=== PATIENT | female | born 2000 | race Caucasian/White ===

== ENCOUNTER 2023-04-28 13:43 | Observation (INO) ==
[2023-04-28] MEDS ORDERED: SODIUM CHLORIDE 0.9% 1,000 ML IV ONE (14:16)
[2023-04-28] MEDS ORDERED: fentaNYL citrate PF 100 MCG/2 ML VIAL IV STA (14:17)
[2023-04-28] MEDS ORDERED: ONDANSETRON INJ 2 MG/ML 2 ML VIAL IV STA (14:17)
--- NOTE | 2023-04-28 14:31 | Emergency Department Note ---
Impression & Plan Pneumomediastinum, Chest pain, Vomiting, GERD (gastroesophageal reflux disease) ED Provider Note NAME: TRELL ROBERTS AGE: 22 SEX: F : 2000 ARRIVES VIA: Walk-In INFORMANT: Patient, ED PROVIDER(S): Jose Nieves MD CHIEF COMPLAINT: Chest pain HPI: This is a 22-year-old female presenting for persistent chest pain. Patient was here yesterday where she was diagnosed with pneumomediastinum, mild. She was discharged with pain control, Protonix. Since then she has been unable to tolerate any p.o. She states she is still nauseous and vomiting without the ability to tolerate any fluids or food. Whenever she tries to eat she does continue to vomit which made her chest pain worse. She states that her pain is actually worse than it was yesterday. She was worse when she breathes. It is a burning sensation. She has not any fevers or chills since leaving. ROS: See above HPI for pertinent positives & negatives. A total of 10 systems reviewed and were otherwise negative. PAST MEDICAL HISTORY: See Below PAST SURGICAL HISTORY: See Below FAMILY HISTORY: See Below SOCIAL HISTORY: See Below HOME MEDICATIONS: See Below ALLERGIES: See Below VITALS: See Below PHYSICAL EXAMINATION: General: Moderate distress due to pain Head: Normocephalic and atraumatic Eyes: Normal inspection, extraocular muscles intact, no conjunctival pallor Ear, nose, throat: Normal external exam Neck: Normal range of motion Respiratory: Patient is in no respiratory distress, lungs clear to auscultation bilaterally, no crepitus Cardiovascular: RRR without murmur appreciated GI: soft, nontender, no guarding or rebound Extremities: pulses intact with good cap refills, no LE pitting edema or calf tenderness Neuro: The patient awake and alert, appropriately conversive,no focal decifits Skin: Warm, dry, and intact MEDICAL DECISION MAKING: This is a 22-year-old female presenting for pneumomediastinum/persistent chest pain. Patient discharged 1 day ago with mild mediastinum given Protonix and pain control. At this time her symptoms are worsening, she is unable to tolerate any p.o. at this time due to nausea and vomiting. Pain is worsening. We will get repeat imaging, lab work to evaluate for any change in her conditio n. Patient's lab work is fairly stable without significant normality, very slight lactic acid level elevation. Otherwise patient's chest x-ray and CT imaging show stable/improving pneumomediastinum. Unfortunate due to patient's nausea vomiting and pain, patient unable to tolerate p.o., will admit her for rehydration therapy and pain control. Triage Nursing notes reviewed. Prior medical records reviewed including visit showing her previous work-up. Vital Signs: reviewed and remarkable for no significant abnormalities Differential diagnosis: Worsening pneumomediastinum, pneumonia, pneumothorax, ACS ER treatment provided: See below Diagnostics interpreted by me: ECG: EKG reviewed by me showing sinus rhythm of 70, normal intervals, no ST segment elevations consistent with STEMI Cardiac Monitoring: An order was placed for continuous cardiac monitoring. The monitor shows a rate of sinus rhythm with 73 rhythm. Laboratory studies: As stated above and show below. Imaging studies: See below. Chest x-ray reviewed by me showing no pneumothorax, focal consolidations Consultation(s): None Past Med/Surg History Medical History No chronic diseases present Polycystic ovarian syndrome Currently being treated with spironolactone Surgical History No significant past surgical history Social History Smoking Status: Never smoker Hx Alcohol Use: No Communication Ability: Effective Feels Safe at Home: Yes Allergies Allergies Allergy/AdvReac Type Severity Reaction Status Date / Time No Known Allergies Allergy Unverified 04/27/23 10:09 Home Meds Home Medications Medication Instructions Recorded Confirmed clindamycin phosphate 1 % lotion 1 applic topical BID PRN 04/27/23 04/28/23 Deeper/Redder pimples fluoxetine 40 mg capsule 40 mg PO QAM 04/27/23 04/28/23 norgestimate 0.18 mg/0.215 mg/0.25 1 tab PO QAM 04/27/23 04/28/23 mg-ethinyl estradiol 25 mcg tablet ([id number]) spironolactone 50 mg tablet 50 mg PO BID 04/27/23 04/28/23 Previous Rx's Medication Instructions Recorded pantoprazole 40 mg tablet,delayed 40 mg PO DAILY #30 tabs 04/27/23 release (Protonix) Results & Data (ED) Vital Signs Vital Signs - 24 hr 04/28/23 13:44 04/28/23 14:11 04/28/23 14:48 Temperature 36.3 C L Temperature Source Temporal Artery Scan Pulse Rate 89 87 Pulse Rate from SpO2 Sensor Respiratory Rate 18 18 Blood Pressure 132/88 Blood Pressure [Right Arm] 159/93 H Blood Pressure Mean 102 Blood Pressure Mean [Right Arm] 115 Pulse Oximetry 97 Oxygen Delivery Method Sepsis Recent Fever Within 48 Hours No Sepsis New/Unexplained Change in Mental Status N/A Sepsis Action Taken by Nursing No Action Required 04/28/23 14:06 04/28/23 14:10 04/28/23 14:20 Temperature Temperature Source Pulse Rate 68 85 66 Pulse Rate from SpO2 Sensor 69 Respiratory Rate 16 17 20 Blood Pressure Blood Pressure [Right Arm] Blood Pressure Mean Blood Pressure Mean [Right Arm] Pulse Oximetry 100 Oxygen Delivery Method Sepsis Recent Fever Within 48 Hours Sepsis New/Unexplained Change in Mental Status Sepsis Action Taken by Nursing 04/28/23 14:30 04/28/23 14:40 04/28/23 14:46 Temperature Temperature Source Pulse Rate 60 67 Pulse Rate from SpO2 Sensor Respiratory Rate 17 18 Blood Pressure 159/93 H Blood Pressure [Right Arm] Blood Pressure Mean 117 Blood Pressure Mean [Right Arm] Pulse Oximetry Oxygen Delivery Method Sepsis Recent Fever Within 48 Hours Sepsis New/Unexplained Change in Mental Status Sepsis Action Taken by Nursing 04/28/23 14:46 04/28/23 15:00 Temperature Temperature Source Pulse Rate 56 L 77 Pulse Rate from SpO2 Sensor Respiratory Rate 17 18 Blood Pressure Blood Pressure [Right Arm] Blood Pressure Mean Blood Pressure Mean [Right Arm] Pulse Oximetry 100 Oxygen Delivery Method Room Air Sepsis Recent Fever Within 48 Hours Sepsis New/Unexplained Change in Mental Status Sepsis Action Taken by Nursing Laboratory Data 04/28/23 14:13 04/28/23 14:13 Lab Results 04/28/23 04/28/23 04/28/23 Range/Units 14:13 14:13 14:46 WBC 9.39 (4.8-10.8) K/ul RBC 4.78 (4.20-5.40) M/uL Hgb 12.6 (12.0-16.0) g/dl Hct 38.6 (37.0-47.0) % MCV 80.8 (80.0-100.0) fL MCH 26.4 (25.0-34.0) pg MCHC 32.6 (32.0-36.0) g/dL RDW Std Deviation 42.8 (36.4-46.3) fL RDW Coeff of Wesley 14.6 H (11.5-14.5) % Plt Count 396 (130-400) K/uL MPV 9.7 (9.4-12.4) fL Immature Gran % (Auto) 0.3 % Neut % (Auto) 75.8 % Lymph % (Auto) 19.8 % Mingo % (Auto) 3.3 % Eos % (Auto) 0.7 % Baso % (Auto) 0.1 % Neut # (Auto) 7.11 H (1.40-6.50) K/uL Lymph # (Auto) 1.86 (1.20-3.40) K/uL Mingo # (Auto) 0.31 (0.11-0.59) K/uL Eos # (Auto) 0.07 (0.00-0.50) K/uL Baso # (Auto) 0.01 (0.00-0.20) K/uL Immature Gran # (Auto) 0.03 (0.01-0.20) K/uL Sodium 136 (136-145) mmol/L Potassium 3.8 (3.5-5.1) mmol/L Chloride 101 (98-107) mmol/L Carbon Dioxide 20 L (21-32) mmol/L Anion Gap 15 H (3-11) BUN 15 (6-23) mg/dl Creatinine 0.84 (0.6-1.2) mg/dl Est Cr Clr Drug Dosing 95.3 ml/min Est GFR ( Amer) 115.1 ml/min Est GFR (Non-Af Amer) 99.4 ml/min BUN/Creatinine Ratio 17.9 (10-20) Glucose 121 H (70-99(Fasting)) mg/dl Lactate 2.1 H* (0.4-2.0) mmol/L Calcium 10.3 (8.6-10.3) mg/dl 04/28/23 Range/Units 16:34 WBC (4.8-10.8) K/ul RBC (4.20-5.40) M/uL Hgb (12.0-16.0) g/dl Hct (37.0-47.0) % MCV (80.0-100.0) fL MCH (25.0-34.0) pg MCHC (32.0-36.0) g/dL RDW Std Deviation (36.4-46.3) fL RDW Coeff of Wesley (11.5-14.5) % Plt Count (130-400) K/uL MPV (9.4-12.4) fL Immature Gran % (Auto) % Neut % (Auto) % Lymph % (Auto) % Mingo % (Auto) % Eos % (Auto) % Baso % (Auto) % Neut # (Auto) (1.40-6.50) K/uL Lymph # (Auto) (1.20-3.40) K/uL Mingo # (Auto) (0.11-0.59) K/uL Eos # (Auto) (0.00-0.50) K/uL Baso # (Auto) (0.00-0.20) K/uL Immature Gran # (Auto) (0.01-0.20) K/uL Sodium (136-145) mmol/L Potassium (3.5-5.1) mmol/L Chloride (98-107) mmol/L Carbon Dioxide (21-32) mmol/L Anion Gap (3-11) BUN (6-23) mg/dl Creatinine (0.6-1.2) mg/dl Est Cr Clr Drug Dosing ml/min Est GFR ( Amer) ml/min Est GFR (Non-Af Amer) ml/min BUN/Creatinine Ratio (10-20) Glucose (70-99(Fasting)) mg/dl Lactate 1.6 (0.4-2.0) mmol/L Calcium (8.6-10.3) mg/dl Administered Medications Discontinued Medications Fentanyl Citrate (Fentanyl Citrate Pf 100 Mcg/2 Ml Vial) 50 mcg IV NOW STA Stop: 04/28/23 14:18 Last Admin: 04/28/23 14:26 Dose: 50 mcg Documented By: KT Hydromorphone HCl (Hydromorphone Inj 0.5 Mg/0.5 Ml Syr) 0.5 mg IV NOW STA Stop: 04/28/23 16:33 Last Admin: 04/28/23 16:39 Dose: 0.5 mg Documented By: CRYSTAL Sodium Chloride (Nss) 1,000 mls @ 999 mls/hr IV .Q1H1M ONE Stop: 04/28/23 15:16 Last Infusion: 04/28/23 15:42 Dose: 0 mls/hr Documented By: Admin: 04/28/23 14:26 Dose: 999 mls/hr Documented By: KAYA Pantoprazole Sodium 40 mg/ (Syringe) 10 mls @ 5 mls/min IV ONE ONE Stop: 04/28/23 17:31 Last Admin: 04/28/23 17:41 Dose: 5 mls/min Documented By: MELISSA Famotidine 20 mg/ Syringe 5 mls @ 2.5 mls/min IV ONE ONE Stop: 04/28/23 17:31 Last Admin: 04/28/23 17:41 Dose: 2.5 mls/min Documented By: MELISSA Acetaminophen (Ofirmev) 1,000 mg in 100 mls @ 400 mls/hr IV NOW STA Stop: 04/28/23 17:29 Last Infusion: 04/28/23 20:34 Dose: 0 mls/hr Documented By: Admin: 04/28/23 17:41 Dose: 400 mls/hr Documented By: MELISSA Ioversol (Optiray 320 100ml) 90 ml IV ONCE ONE Stop: 04/28/23 15:20 Last Admin: 04/28/23 15:20 Dose: 90 ml Documented By: GUY Metoclopramide HCl (Metoclopramide Hcl Inj 5 Mg/Ml 2 Ml Vial) 10 mg IV NOW STA Stop: 04/28/23 16:42 Last Admin: 04/28/23 16:46 Dose: 10 mg Documented By: CRYSTAL Ondansetron HCl (Ondansetron Inj 2 Mg/Ml 2 Ml Vial) 4 mg IV NOW STA Stop: 04/28/23 14:18 Last Admin: 04/28/23 14:26 Dose: 4 mg Documented By: KAYA Imaging Data Radiologist's Impression: Chest X-Ray 04/28/23 14:11 XR chest 2V PA/lateral HISTORY: 22 years-old Female pneumediastium 2 days ago follow-up study in a patient with pneumomediastinum COMPARISON: Chest CT 04/27/2023 TECHNIQUE: PA and lateral views of the chest FINDINGS: Cardiomediastinal and hilar silhouettes are within normal limits. Persistent pneumomediastinum and pneumopericardium with deep tissue air extending into the neck base. The overall degree of pneumomediastinum appears stable to mildly improved. No pneumothorax, pleural effusion or airspace consolidation. IMPRESSION: 1. Persistent pneumomediastinum, stable to mildly improved from yesterday's exam. 2. No pneumothorax. ACT 112: Negative or not required by law. The above report was generated using voice recognition software. It may contain grammatical, syntax or spelling errors. Electronically signed by: Andre Pickard M.D. 04/28/2023 3:[address] 04/28/23 15:[address] WITH CONTRAST CT DOSE: 383.98 mGy.cm HISTORY: Follow-up study in a patient with pneumomediastinum pneumomediastium TECHNIQUE: Multiaxial CT images of the chest were performed following the IV administration of 90 cc of Optiray. A dose lowering technique was utilized adhering to the principles of ALARA. COMPARISON: 04/27/2023 FINDINGS: Unremarkable thyroid. Thymic tissue in the anterior mediastinum. No lymphadenopathy. Heart is normal in size without pericardial effusion. Normal thoracic aorta. There is persistent pneumomediastinum/pneumopericardium with deep tissue air extending into the neck and paraesophageal tissues. Overall these findings appear stable to mildly improved without evidence of progression. No significant esophageal wall thickening. No pneumothorax, pleural effusion, airspace consolidation or pulmonary edema. Central airways are patent. No acute process of the imaged upper abdomen. Unremarkable soft tissues. No acute fracture. IMPRESSION: 1. Persistent pneumomediastinum, stable to slightly improved from yesterday's exam. 2. No pneumothorax. ACT 112: Negative or not required by law. Electronically signed by: Andre Pickard M.D. 04/28/2023 3:32 PM Discharge Plan Visit Data Chief Complaint: Illness Stated Complaint: CHEST PAIN,SOB,VOMITING ED Provider: Jose Nieves Discharge Problem: Pneumomediastinum, Chest pain, Vomiting, GERD (gastroesophageal reflux disease) Patient Disposition: Admitted As Inpatient Discharge Instructions Interventions: ED Discharge Assessment Last Done: 04/28/23 19:52
[2023-04-28 14:33] LABS: Basophils # (auto) 0.01 K/uL (0.00-0.20); Basophils % (auto) 0.1 %; Eosinophils # (auto) 0.07 K/uL (0.00-0.50); Eosinophils % (auto) 0.7 %; Hematocrit (blood only) 38.6 % (37.0-47.0); Hemoglobin 12.6 g/dl (12.0-16.0); Immature Granulocytes # (auto) 0.03 K/uL (0.01-0.20); Immature Granulocytes % (auto) 0.3 %; Lymphocytes # (auto) 1.86 K/uL (1.20-3.40); Lymphocytes % (auto) 19.8 %; Mean Corpuscular Hemoglobin 26.4 pg (25.0-34.0); Mean Corpuscular Hgb Conc 32.6 g/dL (32.0-36.0); Mean Corpuscular Volume 80.8 fL (80.0-100.0); Mean Platelet Volume 9.7 fL (9.4-12.4); Monocytes # (auto) 0.31 K/uL (0.11-0.59); Monocytes % (auto) 3.3 %; Neutrophils # (auto) 7.11 K/uL (1.40-6.50); Neutrophils % (auto) 75.8 %; Platelet Count 396 K/uL (130-400); RDW Coefficient of Variation 14.6 % (11.5-14.5); RDW Standard Deviation 42.8 fL (36.4-46.3); Red Blood Count 4.78 M/uL (4.20-5.40); White Blood Count 9.39 K/ul (4.8-10.8)
[2023-04-28 14:47] LABS: BUN Creatinine Ratio 17.9 (10-20); Calcium 10.3 mg/dl (8.6-10.3); Creatinine Clr Calc Pharmacy 95.3 ml/min; Est GFR (African American) 115.1 ml/min; Est GFR (Non-African American) 99.4 ml/min; Potassium 3.8 mmol/L (3.5-5.1)
[2023-04-28] MEDS ORDERED: OPTIRAY 320 100ml IV ONE (15:19)
--- NOTE | 2023-04-28 15:30 | XRay Report ---
XR chest 2V PA/lateral HISTORY: 22 years-old Female pneumediastium 2 days ago follow-up study in a patient with pneumomedia stinum COMPARISON: Chest CT 04/27/2023 TECHNIQUE: PA and lateral views of the chest FINDINGS: Cardiomediastinal and hilar silhouettes are within normal limits. Persistent pneumomediastinum and pn eumopericardium with deep tissue air extending into the neck base. The overall degree of pneumomedias tinum appears stable to mildly improved. No pneumothorax, pleural effusion or airspace consolidation. IMPRESSION: 1. Persistent pneumomediastinum, stable to mildly improved from yesterday's exam. 2. No pneumothorax. ACT 112: Negative or not required by law. The above report was generated using voice recognition software. It may contain grammatical, syntax o r spelling errors. Electronically signed by: Andre Pickard M.D. 04/28/2023 3:29 PM
--- NOTE | 2023-04-28 15:34 | CT Scan Report ---
CHEST CT WITH CONTRAST CT DOSE: 383.98 mGy.cm HISTORY: Follow-up study in a patient with pneumomediastinum pneumomediastium TECHNIQUE: Multiaxial CT images of the chest were performed following the IV administration of 90 cc of Optiray. A dose lowering technique was utilized adhering to the principles of ALARA. COMPARISON: 04/27/2023 FINDINGS: Unremarkable thyroid. Thymic tissue in the anterior mediastinum. No lymphadenopathy. Heart is normal in size without pericardial effusion. Normal thoracic aorta. There is persistent pneumomediastinum/pneumopericardium with deep tissue air extending into the neck and paraesophageal tissues. Overall these findings appear stable to mildly improved without evidence of progression. No significant esophageal wall thickening. No pneumothorax, pleural effusion, airspac e consolidation or pulmonary edema. Central airways are patent. No acute process of the imaged upper abdomen. Unremarkable soft tissues. No acute fracture. IMPRESSION: 1. Persistent pneumomediastinum, stable to slightly improved from yesterday's exam. 2. No pneumothorax. ACT 112: Negative or not required by law. Electronically signed by: Andre Pickard M.D. 04/28/2023 3:32 PM
[2023-04-28] MEDS ORDERED: HYDROmorphone INJ 0.5 MG/0.5 ML SYR IV STA (16:32)
[2023-04-28] MEDS ORDERED: METOCLOPRAMIDE HCL INJ 5 MG/ML 2 ML VIAL IV STA (16:41)
[2023-04-28] MEDS ORDERED: ACETAMINOPHEN 1,000 MG/100 ML VIAL IV STA (17:15)
--- NOTE | 2023-04-28 17:21 | History & Physical Report ---
Date of Service April 28, 2023 Assessment & Plan (1) Chest pain: Plan: Acetaminophen 1g IV then TID, convert to PO when able to take PO meds Morphine 4mg IV q4h PRN for breakthrough pain Ondansetron for nausea Suspect combination of GERD and pneumomediastinum causing this pain (2) GERD (gastroesophageal reflux disease): Plan: IV famotidine 20mg and pantoprazole 40mg now then BID Avoid NSAIDs Clear liquids, advance diet as tolerated (3) Pneumomediastinum: Plan: Improving on CT chest, suspected secondary to increased Valsalva from vomiting resulting in occult bronchoalveolar injury Repeat CXR in AM to assess for developing pneumothorax (4) Polycystic ovarian syndrome: Plan: Hold spironolactone temporarily to avoid dehydration Plan VTE Prophylaxis - low risk Diet - clear liquids, advance as tolerated Disposition - observation to med/surg Admission and Anticipated Discharge Date Admission Date: April 28, 2023 History of Present Illness Chief Complaint: Chest pain Primary Care Provider: Carline Frias MD Armin William is a 22 year old female who presents to the ER with chest pain. She notes symptoms started on Tuesday initially with nasal congestion and cough which has now improved. She noted worsening reflux and couldn't eat dinner. Sudden shortness of breath after vomiting following this which prompted her visit to the ER yesterday. She was given famotidine 20mg IV and pantoprazole 40mg PO in the ER yesterday and diagnosed with pneumomediastinum. On repeat CT with Gastrografin this was not suspected to be esophageal tear and more likely occult bronchoalveolar injury. She had pulmonology and gastroenterology consults and after stable follow up CXR she was advised to be discharged on pantoprazole for her heartburn. Today made sandwich for herself and couldn't finish it or keep it down therefore returned to the ER with worsening chest pain. No acid taste. No radiation. Sharp pain on breathing out. Better after being given famotidine and pantoprazole here. Given she has been unable to take liquids at this time and failed to manage this as outpatient, inpatient observation was recommended. She reports heartburn intermittently for the last 2 years a few times a week, anything sets it off. Takes chewable tums x1 twice a week to help with this. Nausea part of acid reflux getting worse over the last two years. Allergies Allergy/AdvReac Type Severity Reaction Status Date / Time No Known Allergies Allergy Unverified 04/27/23 10:09 Home Medications Medication Instructions Recorded Confirmed Type clindamycin phosphate 1 % lotion 1 applic topical BID PRN 04/27/23 04/28/23 History Deeper/Redder pimples fluoxetine 40 mg capsule 40 mg PO QAM 04/27/23 04/28/23 History norgestimate 0.18 mg/0.215 mg/0.25 1 tab PO QAM 04/27/23 04/28/23 History mg-ethinyl estradiol 25 mcg tablet ([id number]-[id number]) pantoprazole 40 mg tablet,delayed 40 mg PO DAILY #30 tabs 04/27/23 04/28/23 Rx release (Protonix) spironolactone 50 mg tablet 50 mg PO BID 04/27/23 04/28/23 History Past Med/Surg History Medical History No chronic diseases present Polycystic ovarian syndrome Currently being treated with spironolactone Surgical History No significant past surgical history Social History Smoking Status: Never smoker Second Hand Exposure: No; Do You Dip or Chew Tobacco: No; Tobacco Cessation Education Requested by Patient: No Hx Alcohol Use: No Hx Substance Use: No Preferred Language: Azeri Communication Ability: Effective Mattress Packer Required: No Beliefs That Will Affect Care: None Current Living Situation: Alone Other Information That Helps Us Care for You: No Feels Safe at Home: Yes Safety Concerns: Feels Safe At This Time Assistive Devices: None Review of Systems Review of Systems: All systems reviewed & are unremarkable except as noted in HPI & below Physical Exam Constitutional: WD/WN, vitals as above Eyes: + anicteric sclerae; normal pupil size Respiratory: normal respiratory effort, lungs clear to auscultation Cardiovascular: RRR, no murmur, no edema Gastrointestinal (Abdomen): normal bowel sounds, soft, nontender, no hepatosplenomegaly Musculoskeletal: no cyanosis or clubbing, extremities motor strength 5/5 Skin: no rashes, warm and dry Psychiatric: A+Ox3, euthymic affect Results & Data Results & Data Vital Signs (Past 12 Hours) Vital Signs Temp Pulse Resp BP BP Pulse Ox 04/28/23 14:46 56 L 17 04/28/23 14:46 159/93 H 04/28/23 14:40 67 18 04/28/23 14:30 60 17 04/28/23 14:20 66 20 04/28/23 14:10 85 17 04/28/23 14:06 68 16 100 04/28/23 14:48 18 159/93 H 04/28/23 14:11 87 04/28/23 13:44 36.3 C L 89 18 132/88 97 Laboratory Results Abnormal lab results 04/28/23 04/28/23 04/28/23 Range/Units 14:13 14:13 14:46 RDW Coeff of Wesley 14.6 H (11.5-14.5) % Neut # (Auto) 7.11 H (1.40-6.50) K/uL Carbon Dioxide 20 L (21-32) mmol/L Anion Gap 15 H (3-11) Glucose 121 H (70-99(Fasting)) mg/dl Lactate 2.1 H* (0.4-2.0) mmol/L Diagnostic Findings XR chest 2V PA/lateral HISTORY: 22 years-old Female pneumediastium 2 days ago follow-up study in a patient with pneumomediastinum COMPARISON: Chest CT 04/27/2023 TECHNIQUE: PA and lateral views of the chest FINDINGS: Cardiomediastinal and hilar silhouettes are within normal limits. Persistent pneumomediastinum and pneumopericardium with deep tissue air extending into the neck base. The overall degree of pneumomediastinum appears stable to mildly improved. No pneumothorax, pleural effusion or airspace consolidation. IMPRESSION: 1. Persistent pneumomediastinum, stable to mildly improved from yesterday's exam. 2. No pneumothorax. CHEST CT WITH CONTRAST CT DOSE: 383.98 mGy.cm HISTORY: Follow-up study in a patient with pneumomediastinum pneumomediastium TECHNIQUE: Multiaxial CT images of the chest were performed following the IV administration of 90 cc of Optiray. A dose lowering technique was utilized adhering to the principles of ALARA. COMPARISON: 04/27/2023 FINDINGS: Unremarkable thyroid. Thymic tissue in the anterior mediastinum. No lymphadenopathy. Heart is normal in size without pericardial effusion. Normal thoracic aorta. There is persistent pneumomediastinum/pneumopericardium with deep tissue air extending into the neck and paraesophageal tissues. Overall these findings appear stable to mildly improved without evidence of progression. No significant esophageal wall thickening. No pneumothorax, pleural effusion, airspace consolidation or pulmonary edema. Central airways are patent. No acute process of the imaged upper abdomen. Unremarkable soft tissues. No acute fracture. IMPRESSION: 1. Persistent pneumomediastinum, stable to slightly improved from yesterday's exam. 2. No pneumothorax. Medications Administered ER Medications Given: NSS 1L bolus Fentanyl 50 mcg IV Ondansetron 4mg IV Dilaudid 0.5mg IV Metoclopramide 10mg IV ECG Rate (beats per minute): 70 Rhythm: sinus with SA Findings: no acute ischemic change Comparison ECG Date: from (April 27, 2023) Change: no significant change Code Status & VTE Plan Code Status Full VTE Prophylaxis Plan VTE Prophylaxis will be ordered: Yes PG Care Time/CCT Total # of Minutes Spent Total Time Spent with Patient: Total time spent is greater than 50% in coordination of care (as documented) at patient's floor/unit and/or counseling patient: Coding Level of Care Code 51426 INT INP/OBS CARE 2/55MIN Diagnoses Chest pain R07.9 GERD (gastroesophageal reflux disease) K21.9 Pneumomediastinum J98.2 Polycystic ovarian syndrome E28.2
[2023-04-28] MEDS ORDERED: FAMOTIDINE 20 MG in SYRINGE 3 ML IV ONE (17:30)
[2023-04-28] MEDS ORDERED: PANTOprazole 40 MG in SYRINGE 0 ML IV ONE (17:30)
[2023-04-28] MEDS ORDERED: ONDANSETRON INJ 2 MG/ML 2 ML VIAL IV PRN (20:47)
[2023-04-28] MEDS ORDERED: MoRPHine SULFATE 4 MG/ML 1 ML CARP\\VIAL IV PRN (20:47)
[2023-04-28] MEDS: LACTATED RINGER'S 1,000 ML IV SCH (21:21)
[2023-04-28] MEDS: ACETAMINOPHEN 1,000 MG/100 ML VIAL IV SCH (21:22)
[2023-04-28] MEDS: PANTOprazole 40 MG in SYRINGE 0 ML IV SCH (21:23)
[2023-04-28] MEDS: FAMOTIDINE 20 MG in SYRINGE 3 ML IV SCH (21:23)
[2023-04-29] MEDS: LACTATED RINGER'S 1,000 ML IV SCH (05:31)
[2023-04-29] MEDS: ACETAMINOPHEN 1,000 MG/100 ML VIAL IV SCH (05:31)
[2023-04-29] MEDS: PANTOprazole 40 MG in SYRINGE 0 ML IV SCH (08:20)
[2023-04-29] MEDS: FAMOTIDINE 20 MG in SYRINGE 3 ML IV SCH (08:21)
--- NOTE | 2023-04-29 08:22 | Hospitalist Progress Note ---
Date of Service April 29, 2023 Assessment & Plan (1) Chest pain: Plan: Acetaminophen 1g IV then TID, convert to PO when able to take PO meds Morphine 4mg IV q4h PRN for breakthrough pain Ondansetron for nausea Suspect combination of GERD and pneumomediastinum causing this pain (2) GERD (gastroesophageal reflux disease): Plan: IV famotidine 20mg and pantoprazole 40mg now then BID Avoid NSAIDs Clear liquids, advance diet as tolerated (3) Pneumomediastinum: Plan: Improving on CT chest, suspected secondary to increased Valsalva from vomiting resulting in occult bronchoalveolar injury Repeat CXR in AM to assess for developing pneumothorax (4) Polycystic ovarian syndrome: Plan: Hold spironolactone temporarily to avoid dehydration Plan VTE Prophylaxis - low risk Diet - clear liquids, advance as tolerated Disposition - observation to med/surg Admission and Anticipated Discharge Date Admission Date: April 28, 2023 Results & Data Results & Data Vital Signs (Past 12 Hours) Vital Signs Temp Pulse Resp BP BP Pulse Ox O2 Del Method 04/29/23 07:55 81 04/29/23 07:43 37.2 C 109 H 14 109/70 99 Room Air 04/28/23 21:22 Room Air 04/28/23 21:22 Room Air 04/28/23 20:45 36.7 C 71 16 117/78 97 Room Air PG Care Time/CCT Total # of Minutes Spent Total Time Spent with Patient: Total time spent is greater than 50% in coordination of care (as documented) at patient's floor/unit and/or counseling patient: Coding Diagnoses Chest pain R07.9 GERD (gastroesophageal reflux disease) K21.9 Pneumomediastinum J98.2 Polycystic ovarian syndrome E28.2
[2023-04-29] MEDS ORDERED: FLUoxetine HCL 20 MG CAP PO SCH (09:00)
[2023-04-29 09:32] LABS: Basophils # (auto) 0.01 K/uL (0.00-0.20); Basophils % (auto) 0.2 %; Eosinophils # (auto) 0.06 K/uL (0.00-0.50); Eosinophils % (auto) 0.9 %; Hematocrit (blood only) 34.5 % (37.0-47.0); Immature Granulocytes # (auto) 0.01 K/uL (0.01-0.20); Immature Granulocytes % (auto) 0.2 %; Lymphocytes # (auto) 1.74 K/uL (1.20-3.40); Lymphocytes % (auto) 26.7 %; Mean Corpuscular Hemoglobin 26.4 pg (25.0-34.0); Mean Corpuscular Hgb Conc 31.9 g/dL (32.0-36.0); Mean Corpuscular Volume 82.9 fL (80.0-100.0); Mean Platelet Volume 9.6 fL (9.4-12.4); Monocytes # (auto) 0.23 K/uL (0.11-0.59); Monocytes % (auto) 3.5 %; Neutrophils # (auto) 4.47 K/uL (1.40-6.50); Neutrophils % (auto) 68.5 %; Platelet Count 320 K/uL (130-400); RDW Coefficient of Variation 14.8 % (11.5-14.5); RDW Standard Deviation 45.2 fL (36.4-46.3); Red Blood Count 4.16 M/uL (4.20-5.40); White Blood Count 6.52 K/ul (4.8-10.8)
[2023-04-29 09:43] LABS: Albumin Globulin Ratio 1.1 (0.9-2); BUN Creatinine Ratio 18.6 (10-20); Bilirubin,Total 0.6 mg/dl (0.2-1.0); Calcium 8.8 mg/dl (8.6-10.3); Creatinine Clr Calc Pharmacy 179.8 ml/min; Est GFR (African American) 143.5 ml/min; Est GFR (Non-African American) 123.9 ml/min; Globulin 3.5 gm/dl (2.5-4.0); Potassium 3.7 mmol/L (3.5-5.1); Total Protein 7.5 gm/dl (6.0-8.3)
--- NOTE | 2023-04-29 10:13 | Discharge Summary ---
Date of Service April 29, 2023 Admission HPI Per Admitting Provider Armin William is a 22 year old female who presents to the ER with chest pain. She notes symptoms started on Tuesday initially with nasal congestion and cough which has now improved. She noted worsening reflux and couldn't eat dinner. Sudden shortness of breath after vomiting following this which prompted her visit to the ER yesterday. She was given famotidine 20mg IV and pantoprazole 40mg PO in the ER yesterday and diagnosed with pneumomediastinum. On repeat CT with Gastrografin this was not suspected to be esophageal tear and more likely occult bronchoalveolar injury. She had pulmonology and gastroenterology consults and after stable follow up CXR she was advised to be discharged on pantoprazole for her heartburn. Today made sandwich for herself and couldn't finish it or keep it down therefore returned to the ER with worsening chest pain. No acid taste. No radiation. Sharp pain on breathing out. Better after being given famotidine and pantoprazole here. Given she has been unable to take liquids at t his time and failed to manage this as outpatient, inpatient observation was recommended. She reports heartburn intermittently for the last 2 years a few times a week, anything sets it off. Takes chewable tums x1 twice a week to help with this. Nausea part of acid reflux getting worse over the last two years. Admission Exam Per Admitting Provider Constitutional: WD/WN, vitals as above Eyes: + anicteric sclerae; normal pupil size Respiratory: normal respiratory effort, lungs clear to auscultation Cardiovascular: RRR, no murmur, no edema Gastrointestinal (Abdomen): normal bowel sounds, soft, nontender, no hepatosplenomegaly Musculoskeletal: no cyanosis or clubbing, extremities motor strength 5/5 Skin: no rashes, warm and dry Psychiatric: A+Ox3, euthymic affect Principal Diagnosis Pneumomediastinum Discharge Exam General: WN/WD female sitting up in bed, NAD HEENT: head normocephalic, atraumatic, trachea midline, mmm Resp: CTA, no w/c/r, on room air 99% CV: RRR, no significant m/r/g, no obvious LE edema GI: +BS, soft/NT : no winkler MSK/Neuro: no focal deficit/no slurred speech, answering questions appropriately Psych: AOx3, cooperative with exam Discharge Data Allergies Allergy/AdvReac Type Severity Reaction Status Date / Time No Known Allergies Allergy Unverified 04/27/23 10:09 Consultations 04/28/23 17:14 ED Decision to Admit Stat Ordered Studies Chest X-Ray 04/28/23 14:11 XR chest 2V PA/lateral HISTORY: 22 years-old Female pneumediastium 2 days ago follow-up study in a patient with pneumomediastinum COMPARISON: Chest CT 04/27/2023 TECHNIQUE: PA and lateral views of the chest FINDINGS: Cardiomediastinal and hilar silhouettes are within normal limits. Persistent pneumomediastinum and pneumopericardium with deep tissue air extending into the neck base. The overall degree of pneumomediastinum appears stable to mildly improved. No pneumothorax, pleural effusion or airspace consolidation. IMPRESSION: 1. Persistent pneumomediastinum, stable to mildly improved from yesterday's exam. 2. No pneumothorax. ACT 112: Negative or not required by law. The above report was generated using voice recognition software. It may contain grammatical, syntax or spelling errors. Electronically signed by: Andre Pickard M.D. 04/28/2023 3:[address] 04/28/23 15:[address] WITH CONTRAST CT DOSE: 383.98 mGy.cm HISTORY: Follow-up study in a patient with pneumomediastinum pneumomediastium TECHNIQUE: Multiaxial CT images of the chest were performed following the IV administration of 90 cc of Optiray. A dose lowering technique was utilized adhering to the principles of ALARA. COMPARISON: 04/27/2023 FINDINGS: Unremarkable thyroid. Thymic tissue in the anterior mediastinum. No lymphadenopathy. Heart is normal in size without pericardial effusion. Normal thoracic aorta. There is persistent pneumomediastinum/pneumopericardium with deep tissue air extending into the neck and paraesophageal tissues. Overall these findings appear stable to mildly improved without evidence of progression. No significant esophageal wall thickening. No pneumothorax, pleural effusion, airspace consolidation or pulmonary edema. Central airways are patent. No acute process of the imaged upper abdomen. Unremarkable soft tissues. No acute fracture. IMPRESSION: 1. Persistent pneumomediastinum, stable to slightly improved from yesterday's exam. 2. No pneumothorax. ACT 112: Negative or not required by law. Electronically signed by: Andre Pickard M.D. 04/28/2023 3:32 PM Chest X-Ray 04/29/23 07:08 XR chest 2V PA/lateral CLINICAL HISTORY: pneumomediastinum TECHNIQUE: 2 views of the chest were obtained. Comparison: None available at the time of this dictation. FINDINGS: No lines and tubes are seen. A small amount of pneumomediastinum remains, The lungs are clear. No evidence of pleural effusion or pneumothorax. IMPRESSION: A small amount of pneumomediastinum remains. ACT 112: Negative or not required by law. Electronically signed by: Won Downs M.D. 04/29/2023 10:32 AM Hospital Course (1) Chest pain: In ER day prior, sent home w/ supportive care but unable to tolerate PO intake/ongoing pain Suspected combination of GERD + pneumomediastinum causing this pain Placed on Protonix IV BID on admission, clear liquid diet/pain control/antiemetics prn and IVF overnight with resolution of pain and well controlled with tylenol alone diet advanced and able to discharge following as long as no issue decision to continue protonix PO 40mg BID at discharge. can f/u GI if any ongoing issue No further CP reported prior to discharge Instructed to avoid alcohol/NSAIDs at discharge to prevent worsening reflux (2) GERD (gastroesophageal reflux disease): IV pepcid as well as protonix 40mg IV BID To avoid alcohol/NSAIDs Diet advanced as tolerated without issue Continued protonix 40mg PO BID at discharge short course prn zofran ODT sent just in case as well Can have GI f/u if any ongoing issue as above (3) Pneumomediastinum: Improving on CT chest, suspected secondary to increased Valsalva from vomiting resulting in occult bronchoalveolar injury per prior pulm/GI consultation. Did not feel related to yasemin freeman tear or further endoscopic eval warranted Repeat CXR w/ continued improvement Significantr improvement in GERD, resolution in CP as above F/u PCP at discharge Instructed warning signs to return to ER for further eval (4) Polycystic ovarian syndrome: Held spironolactone temporarily to avoid dehydration IVF as above, diet advanced. To resume her spironolactone tomorrow if keeping up with oral intake without issue Total Time Total Time Spent Total Time Spent (In Minutes): 40 Discharge Plan Discharge Items Patient Disposition: Home - Self-Care Reason For Visit: PNEUMOMEDIASTINUM, INTRACTABLE NAUSEA & VOMITING Discharge Diagnosis: Pneumomediastium Goals: You have been hospitalized for an acute medical problem. During your stay at [facility], we have made an effort to correct the problem that brought you to the hospital while keeping you as comfortable as possible. Medications were used to bring your condition under control and your discharge instructions will include directions for any medications you should take after leaving the hospital. Please make sure you see your Primary Care Provider as part of your follow up plan. Activity: As commented below Non-emergency contact: Primary Care Provider and [employer] Call non-emergency contact if: you have any medication questions, your symptoms worsen and your pain is not controlled Follow-up/Referrals: Andres Peña DO [Physician] - Carline Frias MD [Primary Care Provider] - Diet: Regular Addtl Attending Provider Instructions: You have been hospitalized for nausea/vomiting and chest pain. Recent ER visit was reviewed and repeat imaging which has show stable/improvement and medications were used for reflux including protonix twice daily, which will be continued at discharge. Please avoid any alcohol/ibuprofen/NSAIDs during this time as this can make reflux worse. You can follow up with gastroenterology for any ongoing reflux issues if they are persistent for further evaluation. You can continue tylenol as needed for pain. We have sent zofran for nausea to use as needed as well. You should hold your spironolactone unless you are keeping up with oral intake at discharge and then can resume if not having issues with intake. Please follow up with primary care in the next 7-10 days to monitor your progress after discharge. Please return to the emergency department with any worsening pain, inability to tolerate oral fluids, chest pain, shortness of breath, fevers, or for any other symptoms concerning for you. It has been a pleasure being a part of the medical team providing for you while you have been in the hospital. Take care! Pending Studies at Discharge: No Stand-Alone Forms: My [facility], Work/School Release, Smoking Cessation Medications and DC Order Prescriptions: New ondansetron 4 mg tablet,disintegrating 4 mg PO Q8H PRN (Reason: nausea and vomiting) 4 Days Qty: 10 0RF Continued fluoxetine 40 mg capsule 40 mg PO QAM clindamycin phosphate 1 % lotion 1 applic TOPICAL BID PRN (Reason: Deeper/Redder pimples) norgestimate-ethinyl estradiol [Zpw-Ep-Sjbazh] 0.18/0.215/0.25 mg-25 mcg tablet 1 tab PO QAM Changed pantoprazole [Protonix] 40 mg tablet,delayed release (DR/EC) 40 mg PO BID Qty: 60 0RF Held spironolactone 50 mg tablet 50 mg PO BID Hold Instructions: Resume on 04/30/23. if keeping up with oral intake Discharge Orders: Discharge Order (Routine); Ordered 04/29/23 Ordered By: Josefina Lobo/Other Patient Handouts: Ondansetron Disintegrating Oral Tab, Pantoprazole DR Oral Tab, Pneumothorax (Collapsed Lung) Admission Data Admit Date/Time: 04/28/23 17:15 Attending Provider: Jermaine Guerin Admit Provider: Andrade Rocha Primary Care Provider: Carline Frias Other Providers: Andrade Rocha Other Interventions: Discharge Summary Assessment (RN) Last Done: 04/29/23 11:34 Supervising Physician Co-Signing Physician Notes The patient was not seen by me. The chart was reviewed. Case discussed with ELISHA Williamson. Agree with assessment and plan Coding Level of Care Code 88522 INP/OBS DISCH >30 MIN Diagnoses Chest pain R07.9 GERD (gastroesophageal reflux disease) K21.9 Pneumomediastinum J98.2 Polycystic ovarian syndrome E28.2
--- NOTE | 2023-04-29 10:29 | XRay Report ---
XR chest 2V PA/lateral CLINICAL HISTORY: pneumomediastinum TECHNIQUE: 2 views of the chest were obtained. Comparison: None available at the time of this dictation. FINDINGS: No lines and tubes are seen. A small amount of pneumomediastinum remains, The lungs are clear. No gabi dence of pleural effusion or pneumothorax. IMPRESSION: A small amount of pneumomediastinum remains. ACT 112: Negative or not required by law. Electronically signed by: Won Downs M.D. 04/29/2023 10:32 AM
--- NOTE | 2023-04-29 17:42 | Electrocardiogram Report ---
Test Reason : Blood Pressure : / mmHG Vent. Rate : 070 BPM Atrial Rate : 070 BPM P-R Int : 112 ms QRS Dur : 090 ms QT Int : 428 ms P-R-T Axes : 057 048 048 degrees QTc Int : 462 ms Normal sinus rhythm with sinus arrhythmia Normal ECG When compared with ECG of 27-APR-2023 02:44, (unconfirmed) No significant change was found Confirmed by Gui Kim ([id number]) on 04/29/2023 5:42:12 PM Referred By: Confirmed By:Artie Kim
== END 2023-04-29 13:19 | disposition home or self-care (01) ==
LOC: ED 13:43 → 3N 13:43 → SUATTDRO 17:15 → 3N 19:52